=== PATIENT | male | born 1940 | race Caucasian/White ===

== ENCOUNTER → 2017-05-01 10:16 | Outpatient (POV) | payer MEDICARE, SELFPAY | PROVIDERS: Family Provider Family Medicine; Visit Provider Internal Medicine | DX: Z00.00 Encounter for general adult medical examination without abnormal findings (principal) ==

== ENCOUNTER → 2017-07-24 11:18 | Outpatient (CLI) | payer MEDICARE, SELFPAY ==
--- NOTE | 2017-07-24 11:19 | XR_ITS ---
XR foot wt bearing RT 3V HISTORY: Foot pain ORDERING PHYSICIAN: Mone Dumas DPM PATIENT AGE: 77 years COMPARISON: None FINDINGS: No fracture or dislocation. No lytic or blastic change. There is normal mineralization.. The joint spaces are well-preserved. No significant degenerative/arthritic changes. No erosive changes evident. There is a small calcaneal spur. Normal alignment IMPRESSION: Negative, no acute finding
--- NOTE | 2017-07-24 11:19 | XR_ITS ---
XR foot wt bearing LT 3V HISTORY: Foot pain ORDERING PHYSICIAN: Mone Dumas DPM PATIENT AGE: 77 years COMPARISON: None FINDINGS: There are mild osteoarthritic changes of the first metatarsophalangeal joint. Small calcaneal spur. Normal alignment. Mild adjacent changes of the first metatarsal and sesamoid bones. IMPRESSION: Osteoarthritis of the first metatarsophalangeal joint and distal first metatarsal with sesamoid bones otherwise negative
== END ==
PROVIDERS: Visit Provider Podiatrist
DX: E11.8 Type 2 diabetes mellitus with unspecified complications (principal); M79.2 Neuralgia and neuritis, unspecified
CPT/HCPCS: 73630

== ENCOUNTER → 2017-08-10 10:51 | Outpatient (POV) | payer MEDICARE, SELFPAY | PROVIDERS: Visit Provider Podiatrist | DX: Z00.00 Encounter for general adult medical examination without abnormal findings (principal) ==

== ENCOUNTER → 2017-09-25 13:11 | Outpatient (CLI) | payer MEDICARE, SELFPAY ==
--- NOTE | 2017-09-25 13:30 | CT_ITS ---
CT chest wo con HISTORY: Follow-up pulmonary fibrosis ITS.REASON: IDIPATHIC PULMONARY FIBROSIS ORDERING PHYSICIAN: Lizandro Cordero MD PATIENT AGE: 77 years COMPARISON: 08/08/2016 Technique: Axial images obtained. Sagittal and coronal reformatted images are also generated and reviewed. All CT scans at the facility use one or more dose reduction, viz: automated exposure control; ma/kV adjustment per patient size (including targeted exams where dose is matched to indication; i.e. head); or iterative reconstruction technique. FINDINGS: There are scattered small mediastinal nodes. Coronary artery calcifications and/or stents are noted. Normal heart size. Small paraesophageal hernia with surgical clips in the upper abdomen and gallbladder fossa. There is diffuse prominence of interstitium with interlobular septal thickening consistent with pulmonary fibrosis. There is some honeycombing in the left lung base posteriorly. Early honeycombing right lung base also noted. The pulmonary fibrosis appears slightly worse compared to the previous exam with some increase in honeycombing in the lung bases. No effusions or lobar consolidation. There are degenerative changes in the thoracic spine with multilevel osteophytes. IMPRESSION: The findings are consistent with pulmonary fibrosis which appears slightly worse compared to the previous exam with increase in septal thickening and honeycombing in the lung bases Coronary artery disease.
[2017-09-25 15:54] LABS: Alanine Aminotransferase 52 U/L (12-78); Albumin Level 3.9 gm/dL (3.4-5.0); Alkaline Phosphatase 99 U/L (46-116); Aspartate Amino Transferase 34 U/L (15-37); Bilirubin,Direct 0.2 mg/dL (0.0-0.2); Bilirubin,Indirect 0.5 mg/dL (0.0-0.9); Bilirubin,Total 0.7 mg/dL (0.2-1.0); Total Protein,Serum 6.9 gm/dL (6.4-8.2)
== END ==
PROVIDERS: Family Provider Family Medicine; PCP Family Medicine; Visit Provider Internal Medicine
DX: J84.112 Idiopathic pulmonary fibrosis (principal); Z79.899 Other long term (current) drug therapy
CPT/HCPCS: 36415; 71250; 80076

== ENCOUNTER → 2017-10-09 09:43 | Outpatient (POV) | payer MEDICARE, SELFPAY ==
--- NOTE | 2017-10-09 11:06 | XR_ITS ---
XR chest 2V HISTORY: ITS.REASON: COUGH, CHRONIC RESPIRATORY FAILURE ORDERING PHYSICIAN: Lizandro Cordero MD PATIENT AGE: 77 years COMPARISON: 09/27/2017 FINDINGS: Unremarkable cardiovascular structures. There are chronic changes in the lung bases with scattered areas of pulmonary fibrosis as seen on a recent CT scan of 09/25/2017. There is increased density in the left lung base or superimposed atelectasis or infiltrate. Is hyperinflation with attenuation of peripheral pulmonary vessels consistent with COPD No acute bony anomalies. IMPRESSION: COPD with pulmonary fibrosis with superimposed atelectasis or infiltrate in the left lower lobe
[2017-10-09 11:32] LABS: Basophils % 0.3 % (0.1-2.0); Eosinophils # 0.1 K/mm3 (0.0-0.4); Eosinophils % 1.9 % (0.1-12.0); Hematocrit 47.3 % (42.0-52.0); Hemoglobin 15.1 g/dL (14.1-18.0); Lymphocytes # 1.4 K/mm3 (0.7-4.5); Lymphocytes % 20.5 K/mm3 (10-50); Mean Corpuscular HGB Conc 31.9 g/dL (31.8-35.4); Mean Corpuscular Hemoglobin 31.4 pg (27.0-31.2); Mean Corpuscular Volume 98.2 fl (80-94); Mean Platelet Volume 9.3 fl (7.4-10.4); Monocytes # 0.4 K/mm3 (0.1-1.0); Monocytes % 5.7 % (1.7-9.3); Neutrophils # 4.8 K/mm3 (1.8-7.8); Neutrophils % 71.6 % (37.0-80.0); Platelet Count 154 K/mm3 (142-424); Red Blood Count 4.82 M/mm3 (4.60-6.20); Red Cell Distribution Width 13.6 % (11.5-17.5); White Blood Count 6.7 K/mm3 (4.8-10.8)
[2017-10-09 11:52] LABS: D-Dimer 242 ng/mL (0-400)
[2017-10-09 12:54] LABS: Alanine Aminotransferase 45 U/L (12-78); Albumin/Globulin Ratio 1.4 (1.1-1.8); Alkaline Phosphatase 77 U/L (46-116); Anion Gap 11.7 mEq/L (5-15); Aspartate Amino Transferase 31 U/L (15-37); Bilirubin,Total 0.7 mg/dL (0.2-1.0); Blood Urea Nitrogen 15 mg/dL (7-18); Calcium 9.3 mg/dL (8.5-10.1); Carbon Dioxide 29 mmol/L (21.0-32.0); Chloride 108 mmol/L (98-107); Creatinine,Serum 0.62 mg/dL (0.70-1.30); Estimated Glomerular Filt Rate 126 ml/min (>60); GFR (African American) 153 ML/MIN (>60); Globulin 2.9 gm/dl (1.3-3.2); Glucose 81 mg/dL (74-106); Potassium 4.7 mmoL/L (3.5-5.1); Sodium 144 mmol/L (136-145); Total Protein,Serum 6.9 gm/dL (6.4-8.2); Troponin I 0.08 ng/ml (0.00-0.06)
== END ==
PROVIDERS: Family Provider Family Medicine; PCP Family Medicine; Visit Provider Internal Medicine
DX: R05 Cough (principal); J96.10 Chronic respiratory failure, unspecified whether with hypoxia or hypercapnia; J84.112 Idiopathic pulmonary fibrosis; R07.9 Chest pain, unspecified; Z79.899 Other long term (current) drug therapy
CPT/HCPCS: 36415; 71046; 80053; 84484; 85025; 85378; 93005